=== PATIENT | female | born 1940 | race Caucasian/White ===

== ENCOUNTER 2018-03-03 12:56 | Emergency (ER) | payer MEDICARE ==
[~2018-03-03] VITALS: Ht 177.8 cm; Wt 136.1 kg
[2018-03-03 13:31] LABS: BASO # 0.1 x10^3/uL (0.0-0.2); BASO % 1 % (0-3); EOS # 0.1 x10^3/uL (0.0-0.7); EOS % 2 % (0-3); HEMOGLOBIN 13.1 g/dL (12.0-15.5); LYMPH # 3.5 x10^3/uL (1.0-4.8); LYMPH % 39 % (24-48); MEAN CORPUSCULAR HEMOGLOBIN 30 pg (25-35); MEAN CORPUSCULAR HGB CONC 34 g/dL (31-37); MEAN CORPUSCULAR VOLUME 88 fL (79-100); MONO # 0.6 x10^3/uL (0.0-1.1); MONO % 7 % (0-9); NEUT # 4.5 x10^3uL (1.8-7.7); NEUT % 51 % (31-73); PLATELET COUNT 319 x10^3/uL (140-400); RED BLOOD COUNT 4.43 x10^6/uL (3.50-5.40); RED CELL DISTRIBUTION WIDTH 14.5 % (11.5-14.5); WHITE BLOOD COUNT 8.8 x10^3/uL (4.0-11.0)
[2018-03-03] MEDS ORDERED: IOHEXOL 300 MG/ML 75 ML VIAL. IV ONE (13:45)
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
[2018-03-03 14:38] LABS: ALBUMIN 3.4 g/dL (3.4-5.0); ALBUMIN/GLOBULIN RATIO 0.8 (1.0-1.7); CALCIUM 9.8 mg/dL (8.5-10.1); CREATININE 0.9 mg/dL (0.6-1.0); TOTAL BILIRUBIN 0.3 mg/dL (0.2-1.0); TOTAL PROTEIN 7.5 g/dL (6.4-8.2)
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
[2018-03-03 15:49] VITALS: BP 124/78
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
[2018-03-03] MEDS ORDERED: HYDR-971 PO (16:11)
--- NOTE | 2018-03-03 17:52 | EKG ---
[address] [address] Test Date: 2018-03-03 Test Time: 13:07:09 Pat Name: LOUIS PARKINSON Department: Room: Gender: F Publications Manager: : 1940 Requested By: KALEB EM Order Number: [id number] Reading MD: Measurements Intervals [place] Rate: 73 P: 39 MO: 186 QRS: -22 QRSD: 104 T: 18 QT: 398 QTc: 442 Interpretive Statements SINUS RHYTHM LEFTWARD AXIS OTHERWISE NORMAL ECG RI6.01 No previous ECG available for comparison
== END 2018-03-03 16:20 | disposition home or self-care (01) ==
LOC: ER 12:56
DX: S20.211A Contusion of right front wall of thorax, initial encounter (principal); S89.91XA Unspecified injury of right lower leg, initial encounter; F41.9 Anxiety disorder, unspecified; I10 Essential (primary) hypertension; Z88.5 Allergy status to narcotic agent; V49.50XA Passenger injured in collision with unspecified motor vehicles in traffic accident, initial encounter; Y93.89 Activity, other specified; Y99.8 Other external cause status; Y92.488 Other paved roadways as the place of occurrence of the external cause
CPT/HCPCS: 36415; 71260; 73564; 80053; 84484; 85025; 93005; 96374; 99285; J3010; Q9967